=== PATIENT | female | born 1935 | race Caucasian/White ===

== ENCOUNTER 2020-11-23 09:58 | Outpatient (REF) | payer MEDICARE, OTHER, SELFPAY ==
[2020-11-23 11:16] LABS: MANUAL DIFF FLAG NO
[2020-11-23 11:37] LABS: Basophils Percent Auto 0.5 % (0-2); Eosinophils Absolute Auto 0.2 X10*3/uL (0.0-0.4); Eosinophils Percent Auto 2.4 % (0-4); Hematocrit 48.2 % (37-47); Hemoglobin 15.7 g/dl (12.0-16.0); Imm Gran Abs Auto 0.01 X10*3/uL (0.00-0.03); Imm Gran Pct Auto 0.1 % (0.0-0.4); Lymphocytes Absolute Auto 2.2 X10*3/uL (1.2-4.9); Lymphocytes Percent Auto 29.3 % (20-40); Mean Corpuscular HGB Conc 32.6 g/dl (31.0-35.0); Mean Corpuscular Hemoglobin 29.7 pg (27.0-33.0); Mean Corpuscular Volume 91.3 fL (80-98); Mean Platelet Volume 9.7 fL (9.4-12.3); Monocytes Absolute Auto 0.7 X10*3/uL (0.1-1.2); Neutrophils Absolute Auto 4.3 X10*3/uL (2.0-8.3); Neutrophils Percent Auto 58.7 % (45-73); Platelet Count 242 X10*3/uL (160-400); Red Blood Count 5.28 X10*6/uL (4.20-5.50); Red Cell Distribution Width 13.2 % (11.0-16.0); White Blood Count 7.4 X10*3/uL (4.8-10.8)
[2020-11-23 11:48] LABS: Alanine Aminotransferase 12 U/L (0-31); Alkaline Phosphatase 87 U/L (39-117); Anion Gap 10 (12-20); Aspartate Amino Transferase 15 U/L (5-31); Bilirubin Total 0.7 mg/dL (0.0-1.0); Blood Urea Nitrogen 19 mg/dL (9-16); Calcium 9.7 mg/dL (8.4-10.2); Carbon Dioxide 31 mmol/L (22-29); Chloride 104 mmol/L (96-108); Cholesterol 311 mg/dL; Estimated Glomerular Filt Rate > 60; Glucose Fasting 96 mg/dL (60-99); HDL Cholesterol 44 mg/dL; LDL Cholesterol Calculated 227 mg/dl; Potassium 4.4 mmol/L (3.3-5.1); Sodium 141 mmol/L (135-145); Total Protein 6.7 g/dL (6.5-8.0); Triglycerides 203 mg/dL
[2020-11-23 12:11] LABS: Thyroid Stimulating Hormone 2.61 uIU/mL (0.32-4.0); Vitamin D 25-OH Total 36.4 ng/mL (>30)
== END 2020-11-23 09:59 | disposition home or self-care (01) ==
LOC: HO.HMGCLDS 09:58
PROVIDERS: PCP Internal Medicine; Visit Provider Internal Medicine
DX: I10 Essential (primary) hypertension (principal); Z95.2 Presence of prosthetic heart valve; R26.81 Unsteadiness on feet
CPT/HCPCS: 36415; 80053; 80061; 82306; 84443; 85025

== ENCOUNTER → 2020-12-12 11:25 | Outpatient (REF) | payer MEDICARE, OTHER, SELFPAY ==
--- NOTE | 2020-12-12 11:30 | CA_ITS ---
Transthoracic Echocardiogram Patient (Last, First, Middle): Marcela Vega M Gender: Female Date of : 1935 Age: 85 Procedure Date: 12/12/2020 Procedure Type: Transthoracic Echocardiogram Location: OP Height: 157.48 cm Weight: 85.28 kg BSA: 1.86 m2 Heart Rate: bpm BP: 120 / 80 mmHg [employer]: [employer] Referring MD: Jesus Alberto Bermeo MD DO Symptoms: I10 HTN Z95.2 S/P AVR Study Quality: Fair ECG Rhythm: Sinus Conclusions: - The left ventricular systolic function is normal. The visually estimated ejection fraction is between 65-70%. - A bioprosthetic aortic valve is present. The prosthetic aortic valve appears to be functioning normally. Findings Left Ventricle Normal left ventricular cavity size. The left ventricular systolic function is normal. The visually estimated ejection fraction is between 65-70%. There is no evidence of regional wall motion abnormalities. E/E prime ratio is between 8 and 15 consistent with indeterminate filling pressures. Evidence suggests grade I (mild) diastolic dysfunction. There is mild septal asymmetric hypertrophy. Right Ventricle Normal right ventricular cavity size and systolic function. Atria Both atria are normal in size. Aortic Valve A bioprosthetic aortic valve is present. The prosthetic aortic valve appears to be functioning normally. The mean gradient is 9 mmHg. There is no aortic valve regurgitation. Mitral Valve There is mild anterior mitral leaflet thickening. There is mild mitral annular calcification. There is no mitral valve stenosis. Pulmonic Valve The pulmonic valve was not well visualized. Tricuspid Valve There is trace tricuspid valve regurgitation. The pulmonary artery systolic pressure is normal. Great Vessels The asc aorta is normal in size. Venous The inferior vena cava is normal in size and collapses greater than 50% with inspiration. Pericardium/Pleural There is no evidence of pericardial effusion. Prior Study Comparison No significant change compared to prior study dated: 07/10/2019. Measurements 2D Linear Measurements IVSd: 1.09 0.6-0.9/0.6-1.0 cm LVIDd: 4.08 3.9-5.3/4.2-5.9 cm LVIDd Index: 2.19 2.4-3.2/2.2-3.1 cm/m2 LVIDs: 2.18 2.0-3.6 cm LVPWd: 0.72 0.7-1.1 cm LA Diam: 3.40 2.7-3.8/3.0-4.0 cm LAIDs Index: 1.83 1.5-2.3 cm/m2 LV Mass: 141.77 67-162/88-224 g LV Mass Index: 76.22 43-95/49-115 g/m2 LVOT Diam: 2.00 3.0+(-)1.3 cm 2D Systolic Function EF 4C: 68.50 >55% Mitral Valve MV Pk E: 0.81 MV PK A: 1.23 MV Decel Time: 239.00 E/A: 0.70 E'Lateral: 6.31 E'Medial: 5.44 E/E' Med: 15.00 E/E' Lat: 12.90 PHT: 70.00 MVA PHT: 3.14 Decel [place]: 3.40 Aortic Valve AoV Pk Rtiesh: 1.94 AoV Mn Ritesh: 1.41 AoV VTI: 0.39 AoV Pk Grad: 15.00 Aov Mn Grad: 9.00 RICKY Cont.VTI: 1.69 LVOT LVOT Pk Ritesh: 0.92 LVOT Mn Ritesh: 0.69 LVOT VTI: 0.21 LVOT Pk Grad: 3.00 LVOT Mn Grad: 2.00 LVOT Diam: 2.00 LVOT Area: 3.14 Diastolic Function MV Pk E: 0.81 MV Pk A: 1.23 E/A: 0.70 E'Medial: 5.44 E/E' Med: 15.00 E' Laterial: 6.31 E/E' Lat: 12.90 Tricuspid Valve TR Pk Ritesh: 2.17 TR Pk Grad: 19.00 RA Press: 3.00 RVSP: 22.00 Great Vessels Aorta Ao Asc: 3.30 2.1-3.4 cm Updated in Other Vendor System with Status of Final Donal Rosen MD electronically signed on 12/13/2020 12:00:13 PM with status of Final
== END ==
LOC: HO.CARD 11:25
PROVIDERS: PCP Internal Medicine; Visit Provider Internal Medicine
DX: I10 Essential (primary) hypertension (principal); Z95.2 Presence of prosthetic heart valve
CPT/HCPCS: 93306

== ENCOUNTER 2020-12-15 14:57 | Outpatient (REF) | payer MEDICARE, OTHER, SELFPAY ==
--- NOTE | 2020-12-15 | PFT_ITS ---
FLOWS: FEV1 of 84% of predicted at 1.27 L. FVC 83% of predicted at 1.72 L. FEV1 to FVC ratio of 0.74. No bronchodilator response. LUNG VOLUMES: Total lung capacity 73% of predicted at 3.38 L. Residual volume 69% of predicted at 1.61 L. Slow vital capacity 78% of predicted at 1.78 L. Expiratory reserve volume 78% of predicted at 0.26 L. The patient was unable to tolerate diffusion capacity maneuver. IMPRESSION: Mild restrictive ventilatory defect with no bronchodilator response. Decreased expiratory reserve volume suggests extrathoracic restriction likely secondary to abdominal obesity. Rg Mackenzie MD AP/MODL / [id number]
--- NOTE | ~2020-12-15 | XR_ITS ---
EXAMINATION: XR CHEST CLINICAL INFORMATION: Hypertension COMPARISON: None TECHNIQUE: 2 views of the chest were obtained. FINDINGS: The cardiac silhouette does not appear enlarged. There is a prosthetic heart valve and median sternotomy wires. Hilar and mediastinal contours are unremarkable. The lungs are clear. There is no pleural effusion. There are degenerative changes of the spine. XR/XR chest 2V IMPRESSION: Postsurgical changes following probable heart valve replacement. No evidence for acute disease in the chest
== END 2020-12-15 14:58 | disposition home or self-care (01) ==
LOC: HO.RESP 14:57
PROVIDERS: PCP Internal Medicine; Visit Provider Internal Medicine
DX: I10 Essential (primary) hypertension (principal); R53.83 Other fatigue; M54.9 Dorsalgia, unspecified; Z95.2 Presence of prosthetic heart valve; Z87.891 Personal history of nicotine dependence
CPT/HCPCS: 71046; 94060; 94727